=== PATIENT | female | born 1980 ===

== ENCOUNTER → 2018-07-14 | Outpatient (CLI) | payer OTHER ==
[~2018-07-14] MED LIST: Augmentin 875-1 EACH PO; CETI5 PO; VITAMIN D3400 UNIT PO
[2018-07-16 15:07] LABS: HPV 16 Negative (Negative); HPV 18 Negative (Negative); HPV OTHER HR TYPES Negative (Negative)
== END | disposition home or self-care (01) ==
LOC: LAB SHORT 17:31 → LAB 17:31
PROVIDERS: Nurse Practitioner Women's Health
DX: Z12.4 Encounter for screening for malignant neoplasm of cervix (principal); Z91.89 Other specified personal risk factors, not elsewhere classified
CPT/HCPCS: 87624; G0123

== ENCOUNTER 2018-08-22 07:26 | Day surgery (SDC) | payer BC, OTHER | END 2018-08-22 12:00 | disposition home or self-care (01) | LOC: MOI US 07:26 → MOI MAM 07:45 → MOI US 07:45 | PROC: 0HBT3ZX Excision of Right Breast, Percutaneous Approach, Diagnostic (ICD-10-PCS; principal; 2018-08-22) | DX: D24.1 Benign neoplasm of right breast (principal) | CPT/HCPCS: 19083; 77065; 88305; 88342; G0279 ==

== ENCOUNTER 2018-09-25 05:50 | Day surgery (SDC) | payer BC, OTHER ==
[~2018-09-25] VITALS: Ht 154.9 cm; Wt 74.4 kg
[~2018-09-25 05:50] MED LIST changes: +COQ1050 MG PO; +HYDCHL25 PO; +SUPER C PO
--- NOTE | 2018-09-25 06:31 | NUR ---
PT ADMITTED TO [facility]. AGREES WITH PLANNED SURGER. PT STATES SHE IS ANXIOUS. LUNG SOUNDS CLEAR.
--- NOTE | 2018-09-25 10:00 | NUR ---
Patient up to Ambulate independently. Gait steady. Discharge instructions reviewed with patient. Patient verbalizes understanding. Copy given to patient to take home. Patient States Post-Procedure ride home has been arranged. Discharged via wheelchair to private car for ride home.
== END 2018-09-25 23:22 | disposition home or self-care (01) ==
LOC: ORSCMMR 05:50 → ORD 07:30 → ORSCMMR 23:22
PROVIDERS: Surgery
PROC: 0HBT0ZX Excision of Right Breast, Open Approach, Diagnostic (ICD-10-PCS; principal; 2018-09-25 07:30)
DX: D24.1 Benign neoplasm of right breast (principal); I10 Essential (primary) hypertension; J45.909 Unspecified asthma, uncomplicated
CPT/HCPCS: 88305; J1100; J1885; J2250; J2405; J2704; J3010; J7120